=== PATIENT | male | born 1950 | race Caucasian/White ===

== ENCOUNTER 2022-10-18 05:59 | Emergency (ER) | payer MEDICARE, OTHER ==
[2022-10-18] MEDS ORDERED: SODIUM CHLORIDE 0.9% 1,000 ML IV STA (06:10)
[2022-10-18 06:15] VITALS: TEMP 98
[2022-10-18 06:27] LABS: Basophils % (A) 0 %; Eosinophils # (A) 0.2 k/uL (0-0.7); Eosinophils % (A) 1 %; HCT 38.1 % (39.0-53.0); Lymphocytes # (A) 1.3 k/uL (1.0-4.8); Lymphocytes % (A) 8 %; MCH 32.8 pg (25.0-35.0); MCV 96.3 fL (80.0-100.0); Mean Platelet Volume 10.6; Monocytes # (A) 1.1 k/uL (0-1.0); Monocytes % (A) 7 %; Neutrophils # (A) 12.4 k/uL (1.3-7.7); Neutrophils % (A) 82 %; Platelet Count 161 k/uL (150-450); RBC 3.96 m/uL (4.30-5.90); RDW 13.3 % (11.5-15.5); WBC 15.2 k/uL (3.8-10.6)
--- NOTE | 2022-10-18 06:41 | ED ---
Fall HPI <Efrain Chavis - Last Filed: 10/18/22 07:21> - General Source: patient, EMS, RN notes reviewed Mode of arrival: EMS - History of Present Illness MD Complaint: fall <Faby Pritchard - Last Filed: 10/18/22 17:46> - General Chief Complaint: Fall Stated Complaint: Fall N/V/D Time Seen by Provider: 10/18/22 06:05 - History of Present Illness Initial Comments: This is a 72-year-old male who presents to the emergency department for a fall. Patient states that he tripped and fell 3-4 days ago, and has been on the ground since. Unsure if he had any loss of consciousness. He did hit his head. He was unable to get himself back up. States that he did urinate and defecate on himself multiple times. Patient also smells very strongly of urine. Patient reports that while he was on the ground, he was on the phone with his nephew multiple times and his nephew finally convinced him to call EMS. Patient is rambling and not making sense during some aspects of conversation. He does state though that he was hesitant to come in sooner, because of his fear of hospitals. When his nephew arrived, he said that when he had been on the phone with him, he was initially not being truthful and saying that he was just resting on the couch, when in fact he was on the floor the whole time. He did experience episodes of confusion during some of these conversations, which has never happened before. He had also been complaining of intermittent episodes of nausea and vomiting while laying on the floor. He confirms that the patient has no past medical history and takes no medication. (Faby Pritchard) - Related Data Home Medications Medication Instructions Recorded Confirmed No Known Home Medications 10/18/22 10/18/22 Allergies Allergy/AdvReac Type Severity Reaction Status Date / Time Penicillins Allergy Unknown Unknown Verified 10/18/22 09:00 Review of Systems ROS Other: All systems not noted in ROS Statement are negative. <Efrain Chavis - Last Filed: 10/18/22 07:21> ROS Other: All systems not noted in ROS Statement are negative. <Faby Pritchard - Last Filed: 10/18/22 17:46> ROS Statement: Those systems with pertinent positive or pertinent negative responses have been documented in the HPI. General Exam Limitations: no limitations General appearance: alert, in no apparent distress Head exam: Present: atraumatic, normocephalic, normal inspection Eye exam: Present: normal appearance, PERRL, EOMI. Absent: scleral icterus, conjunctival injection, periorbital swelling Respiratory exam: Present: normal lung sounds bilaterally. Absent: respiratory distress, wheezes, rales, rhonchi, stridor Cardiovascular Exam: Present: regular rate, normal rhythm, normal heart sounds. Absent: systolic murmur, diastolic murmur, rubs, gallop, clicks Neurological exam: Present: alert, oriented X3, CN II-XII intact Expanded Speech: Present: fluid speech Cerebellar function: Finger to Nose: Normal, Romberg: Normal Motor strength exam: RUE: 5, LUE: 5, RLE: 5, LLE: 5 Eye Response: (4) open spontaneously Motor Response: (6) obeys commands Verbal Response: (5) oriented Psychiatric exam: Present: normal affect, normal mood Skin exam: Present: warm, dry, intact, normal color. Absent: rash <Faby Pritchard - Last Filed: 10/18/22 17:46> Course Vital Signs 10/18/22 10/18/22 10/18/22 06:02 07:25 07:36 Temperature 98 F Pulse Rate 80 78 83 Respiratory 20 18 20 Rate Blood Pressure 166/85 203/106 203/100 O2 Sat by Pulse 99 99 98 Oximetry 10/18/22 10/18/22 10/18/22 07:56 07:57 08:00 Temperature Pulse Rate 78 103 H Respiratory 32 H 18 8 L Rate Blood Pressure 168/118 168/118 O2 Sat by Pulse 99 98 99 Oximetry 10/18/22 10/18/22 10/18/22 08:04 08:15 08:18 Temperature Pulse Rate 110 H 101 H 101 H Respiratory 18 26 H 18 Rate Blood Pressure 191/90 163/74 161/82 O2 Sat by Pulse 99 49 L 99 Oximetry 10/18/22 10/18/22 10/18/22 08:20 08:25 08:30 Temperature Pulse Rate 102 H 101 H 100 Respiratory 18 18 16 Rate Blood Pressure 161/82 164/82 136/109 O2 Sat by Pulse 92 L 93 L Oximetry 10/18/22 10/18/22 08:40 10:25 Temperature Pulse Rate 109 H 104 H Respiratory 20 18 Rate Blood Pressure 157/78 112/71 O2 Sat by Pulse 95 99 Oximetry Medical Decision Making - Lab Data Result diagrams: 10/18/22 06:12 <Efrain Chavis - Last Filed: 10/18/22 07:21> - Lab Data Result diagrams: 10/18/22 06:12 10/18/22 08:47 - Radiology Data Radiology results: report reviewed, image reviewed <Faby Pritchard - Last Filed: 10/18/22 17:46> - Medical Decision Making This is a 72-year-old male who presents to the emergency department for a fall and altered mental status. Was pt. sent in by a medical professional or institution? @ -No Did you speak to anyone other than the patient for history? @ -Yes, I spoke with his nephew, who provided all of the information discussed during their phone calls with the patient as listed in the HPI, as well as the fact that the patient has no medical history and takes no medication. Did you review nursing and triage notes? @ -Yes, and I agree, it is accurate with regards to the patient's symptoms. Were old charts reviewed? @ -No Differential Diagnosis? @ -Differential Altered Mental Status: Hypoglycemia, DKA, hypercapnia, ETOH, overdose, CO poisoning, trauma, myxedema coma, HTN encephalopathy, infection, encephalitis, psychosis, intercranial hemorrhage, hepatic encephalopathy, meningitis, CVA, this is not meant to be an all-inclusive list EKG interpreted by me (3pts min.)? @ -EKG interpreted by me demonstrating the following: Sinus rhythm. Ventricular rate 91 beats per minute, ND interval 148 ms, QRS duration 88 ms, QTC 414 ms. X-rays interpreted by me (1pt min.)? @ -Chest x-ray obtained, my interpretation identifies no localized consolidations or infiltrates. CT interpreted by me (1pt min.)? @ -Computed tomography scan of the brain obtained. My interpretation identifies an acute left cerebellar hemorrhage. U/S interpreted by me (1pt. min.)? @ -Not obtained What testing was considered but not performed? (CT, X-rays, U/S, labs)? Why? @ -None What meds were considered but not given? Why? @ -None Did you discuss the management of the patient with other professionals? @ -Yes, Zulma, BETTY with Dr. Hdez, neurointerventionalist. She spoke with Dr. Hdez, who advised transfer to [facility]. Decision was confirmed by him at 9:16am. Pt accepted as ED to ED transfer at [facility]. Dr. Asif, ED attending, is the accepting provider. Did you reconcile home meds? @ -No Was smoking cessation discussed for >3mins.? @ -No Was critical care preformed (if so, how long)? @ -No Were there social determinants of health that impacted care today? How? (Homelessness, low income, unemployed, alcoholism, drug addiction, transportation, low edu. Level, literacy, decrease access to med. care, retirement, rehab)? @ -No Was there de-escalation of care discussed even if they declined? (Discuss DNR or withdrawal of care, Hospice)? @ -No What co-morbidities impacted this encounter? (DM, HTN, Smoking, COPD, CAD, Canc er, CVA, Hep., AIDS, mental health diagnosis, sleep apnea, morbid obesity)? @ -None Was patient admitted / discharged? @ -Transferred to [facility]. Given that the patient was making bizarre statements on arrival and appeared to be acting altered, computed tomography scan of the brain was subsequently obtained. Computed tomography scan of the brain obtained revealing an intraparenchymal cyst left cerebellar hemorrhage measuring 2.5 x 2.6cm with mild mass effect upon the forth ventricle and mild surrounding edema. We then obtained a CTA of the head and neck, however this did not identify any additional irregularities. Chest x-ray obtained as well revealing no acute process. HOB kept at 30 degrees. Patient was hypertensive at 203/100 and subsequently started on a Cardene drip. I spoke with BETTY Maya with Dr. Hdez, neurointerventionalist. She advised keeping his BP in the 130-150 range systolically. After speaking with Dr. Hdez, he advised transfer to [facility]. Patient transferred to [facility] ED. Stroke team does not need to be activated when the patient arrives. Lab work reveals leukocytosis. The other blood work hemolyzed and did not result prior to transfer. However, I suspect that the patient is in rhabdomyolysis due to prolonged downtime. Undiagnosed new problem with uncertain prognosis? @ -None Drug Therapy requiring intensive monitoring for toxicity (Heparin, Nitro, Insulin, Cardizem)? @ -None Were any procedures done? @ -None Diagnosis/symptom? @ -Acute cerebellar hemorrhage, Fall Acute, or Chronic, or Acute on Chronic? @ -Acute Uncomplicated (without systemic symptoms) or Complicated (systemic symptoms)? @ -Complicated Side effects of treatment? @ -None Exacerbation, Progression, or Severe Exacerbation] @ -Not applicable Poses a threat to life or bodily function? @ -Yes This case was discussed in detail with the attending ED physician, Dr. Cobb. Presentation, findings, and treatment plan discussed in detail as well. (Faby Pritchard) - Lab Data Lab Results 10/18/22 10/18/22 10/18/22 Range/Units 06:12 08:47 08:47 WBC 15.2 H (3.8-10.6) k/uL RBC 3.96 L (4.30-5.90) m/uL Hgb 13.0 (13.0-17.5) gm/dL Hct 38.1 L (39.0-53.0) % MCV 96.3 (80.0-100.0) fL MCH 32.8 (25.0-35.0) pg MCHC 34.0 (31.0-37.0) g/dL RDW 13.3 (11.5-15.5) % Plt Count 161 (150-450) k/uL MPV 10.6 Neutrophils % 82 % Lymphocytes % 8 % Monocytes % 7 % Eosinophils % 1 % Basophils % 0 % Neutrophils # 12.4 H (1.3-7.7) k/uL Lymphocytes # 1.3 (1.0-4.8) k/uL Monocytes # 1.1 H (0-1.0) k/uL Eosinophils # 0.2 (0-0.7) k/uL Basophils # 0.0 (0-0.2) k/uL Sodium 143 (137-145) mmol/L Potassium 3.6 (3.5-5.1) mmol/L Chloride 109 H (98-107) mmol/L Carbon Dioxide 24 (22-30) mmol/L Anion Gap 10 mmol/L BUN 45 H (9-20) mg/dL Creatinine 3.02 H (0.66-1.25) mg/dL Est GFR (CKD-EPI)AfAm 23 (>60 ml/min/1.73 sqM) Est GFR (CKD-EPI)NonAf 20 (>60 ml/min/1.73 sqM) Glucose 95 (74-99) mg/dL Lactic Ac Sepsis Rflx Plasma Lactic Acid Hill (0.7-2.0) mmol/L Calcium 8.2 L (8.4-10.2) mg/dL Total Bilirubin 0.7 (0.2-1.3) mg/dL AST 79 H (17-59) U/L ALT 46 (4-49) U/L Alkaline Phosphatase 49 (38-126) U/L Creatine Kinase 2019 H* (55-170) U/L Total Protein 6.1 L (6.3-8.2) g/dL Albumin 3.3 L (3.5-5.0) g/dL Urine Color Light Red Urine Appearance Cloudy (Clear) Urine pH 7.5 (5.0-8.0) Ur Specific [place] 1.012 (1.001-1.035) Urine Protein 1+ H (Negative) Urine Glucose (UA) Negative (Negative) Urine Ketones Negative (Negative) Urine Blood Large H (Negative) Urine Nitrite Negative (Negative) Urine Bilirubin Negative (Negative) Urine Urobilinogen <2.0 (<2.0) mg/dL Ur Leukocyte Esterase Moderate H (Negative) Urine RBC >182 H (0-5) /hpf Urine WBC 25 H (0-5) /hpf Ur Squamous Epith Cells 4 (0-4) /hpf Urine Bacteria Rare H (None) /hpf 10/18/22 10/18/22 Range/Units 08:47 09:52 WBC (3.8-10.6) k/uL RBC (4.30-5.90) m/uL Hgb (13.0-17.5) gm/dL Hct (39.0-53.0) % MCV (80.0-100.0) fL MCH (25.0-35.0) pg MCHC (31.0-37.0) g/dL RDW (11.5-15.5) % Plt Count (150-450) k/uL MPV Neutrophils % % Lymphocytes % % Monocytes % % Eosinophils % % Basophils % % Neutrophils # (1.3-7.7) k/uL Lymphocytes # (1.0-4.8) k/uL Monocytes # (0-1.0) k/uL Eosinophils # (0-0.7) k/uL Basophils # (0-0.2) k/uL Sodium (137-145) mmol/L Potassium (3.5-5.1) mmol/L Chloride (98-107) mmol/L Carbon Dioxide (22-30) mmol/L Anion Gap mmol/L BUN (9-20) mg/dL Creatinine (0.66-1.25) mg/dL Est GFR (CKD-EPI)AfAm (>60 ml/min/1.73 sqM) Est GFR (CKD-EPI)NonAf (>60 ml/min/1.73 sqM) Glucose (74-99) mg/dL Lactic Ac Sepsis Rflx Y Plasma Lactic Acid Hill 2.7 H* (0.7-2.0) mmol/L Calcium (8.4-10.2) mg/dL Total Bilirubin (0.2-1.3) mg/dL AST (17-59) U/L ALT (4-49) U/L Alkaline Phosphatase (38-126) U/L Creatine Kinase (55-170) U/L Total Protein (6.3-8.2) g/dL Albumin (3.5-5.0) g/dL Urine Color Urine Appearance (Clear) Urine pH (5.0-8.0) Ur Specific [place] (1.001-1.035) Urine Protein (Negative) Urine Glucose (UA) (Negative) Urine Ketones (Negative) Urine Blood (Negative) Urine Nitrite (Negative) Urine Bilirubin (Negative) Urine Urobilinogen (<2.0) mg/dL Ur Leukocyte Esterase (Negative) Urine RBC (0-5) /hpf Urine WBC (0-5) /hpf Ur Squamous Epith Cells (0-4) /hpf Urine Bacteria (None) /hpf Disposition <Efrain Chavis - Last Filed: 10/18/22 07:21> - Out of Hospital Transfer - Req. Specs Out of Hospital Transfer - Requested Specifics: Other Emergency Center ([facility]) <Faby Pritchard - Last Filed: 10/18/22 17:46> Clinical Impression: Fall, Cerebellar hemorrhage, acute Disposition: OTHER INSTITUTION NOT DEFINED Referrals: None,Stated [REFERRING] - 1-2 days
--- NOTE | 2022-10-18 07:14 | CT ---
EXAMINATION TYPE: CT brain alexandre wo con DATE OF EXAM: 10/18/2022 COMPARISON: None HISTORY: Fall CT DLP: 1410.[address] of the brain was performed. The ventricles, basal cisterns and sulci overlying the cerebral convexities demonstrate mild enlargem ent. Intraparenchymal cyst left cerebellar hemorrhage is noted measuring 2.5 x 2.6 cm. There is mild mass effect upon the fourth ventricle and mild surrounding edema. There is decreased attenuation about the periventricular white matter and deep white matter of both c erebral hemispheres, compatible with chronic small vessel ischemia. No mass effects are seen. If symptoms persist consider MRI. Osseous calvarium is intact. IMPRESSION: 1. Acute hemorrhage within the left cerebellum is noted. 2. Age-related atrophic and chronic small vessel ischemic change. CT Cervical Spine: Unenhanced CT of the cervical spine was performed with bone and soft tissue window settings submitted . Coronal and sagittal reconstruction is obtained. There is normal alignment and prevertebral soft tissues. No evidence for acute cervical fracture . Scattered degenerative disc disease and spondylosis. Biapical scarring. IMPRESSION: 1. No evidence for acute fracture or subluxation of the cervical spine.
--- NOTE | 2022-10-18 07:22 | XR ---
EXAMINATION TYPE: XR chest 2V DATE OF EXAM: 10/18/2022 COMPARISON: NONE HISTORY: Shortness of breath TECHNIQUE: Frontal and lateral views of the chest are obtained. FINDINGS: Scattered senescent parenchymal changes noted. Hyperinflation compatible with COPD. No evidence for infiltrate. No evidence for atelectasis. Heart size is stable. Mediastinal structures are stable and grossly unremarkable. No evidence for hilar prominence. Degenerative changes dorsal spine. IMPRESSION: 1. No evidence for acute pulmonary disease.
[2022-10-18] MEDS ORDERED: ONDANSETRON 4 MG/2 ML VIAL IVP STA (07:57)
[2022-10-18] MEDS ORDERED: niCARdipine 20 MG in SODIUM CHLORIDE 0.9% 192 ML IV SCH (08:00)
--- NOTE | 2022-10-18 08:21 | CT ---
EXAMINATION TYPE: CT angio head neck CT DLP: 459.3 mGycm, Automated exposure control for dose reduction was used. DATE OF EXAM: 10/18/2022 8:08 AM COMPARISON: CT brain C-spine 10/18/2022. CLINICAL INDICATION:Male, 72 years old with history of Cerebellar bleed, AMS; PHH, Cerebellar bleed, AMS TECHNIQUE: Axially acquired helical CT angiogram of the head and neck was obtained with contrast util izing 65 cc of Isovue-370 administered intravenously. Axial images are supplemented with 3D reconstru ctions which were post-processed at an independent workstation. NASCET criteria used. FINDINGS: Redemonstration of left cerebellar hemorrhage. No obvious active extravasation.. CTA HEAD: The visualized portions of the internal carotid arteries, middle cerebral arteries, anterior cerebral arteries, and posterior cerebral arteries are patent. The basilar and vertebral arteries are patent. CTA NECK: Right Carotid System: The common carotid artery and external carotid artery are patent. There is minimal atherosclerotic pl aque at the carotid bifurcation. Less than 50% stenosis identified. The remaining portions of the int ernal carotid artery demonstrate normal size without significant narrowing. Left Carotid System: The common carotid artery and external carotid artery are patent. The carotid bifurcation demonstrate s no evidence of hemodynamically significant stenosis. The remaining portions of the internal carotid artery demonstrate normal size without significant narrowing. Vertebral arteries are patent without evidence hemodynamically significant stenosis. There is a three-vessel aortic arch. The origins of the great vessels are patent. No evidence of hemo dynamically significant stenosis. Centrilobular emphysematous changes. Degenerative changes of the cervical spine. IMPRESSION: 1. No evidence of dissection of the cervical internal carotid arteries or vertebral arteries. Less th an 50% stenosis at the right carotid bifurcation. No significant stenosis at the left carotid bifurca tion. 2. No evidence of high-grade stenosis or intracranial aneurysm. 3. Redemonstration of left cerebellar hemorrhage from earlier CT. No obvious intracranial aneurysm in this location.
[2022-10-18 09:34] LABS: Appearance,Urine Cloudy (Clear); Bacteria,Urine Rare /hpf; Bilirubin,Urine Negative (Negative); Blood,Urine Large (Negative); Color,Urine Light Red; Glucose,Urine (UA) Negative (Negative); Ketones,Urine Negative (Negative); Leukocyte Esterase,Urine Moderate (Negative); Nitrite,Urine Negative (Negative); PH, Urine 7.5 (5.0-8.0); Protein,Urine 1+ (Negative); RBC,Urine >182 /hpf (0-5); Specific Gravity,Urine 1.012 (1.001-1.035); Squamous Epithelial Cell,Urine 4 /hpf (0-4); Urobilinogen,Urine <2.0 mg/dL (<2.0); WBC,Urine 25 /hpf (0-5)
[2022-10-18 09:35] LABS: ALT 46 U/L (4-49); AST 79 U/L (17-59); African American GFR (CKD) 23 (>60 ml/min/1.73 sqM); Albumin 3.3 g/dL (3.5-5.0); Alkaline Phosphatase 49 U/L (38-126); Anion Gap 10 mmol/L; Blood Urea Nitrogen 45 mg/dL (9-20); Calcium 8.2 mg/dL (8.4-10.2); Carbon Dioxide 24 mmol/L (22-30); Chloride 109 mmol/L (98-107); Glucose 95 mg/dL (74-99); Non-African American GFR(CKD) 20 (>60 ml/min/1.73 sqM); Potassium 3.6 mmol/L (3.5-5.1); Sodium 143 mmol/L (137-145); Total Bilirubin 0.7 mg/dL (0.2-1.3); Total Protein 6.1 g/dL (6.3-8.2)
[2022-10-18 10:14] LABS: Creatine Kinase 2019 U/L (55-170)
[2022-10-18 10:29] VITALS: BP 112/71; PULSE 104; RESP 18
== END 2022-10-18 10:34 | disposition other institution (70) ==
LOC: EC 05:59
DX: S06.360A Traumatic hemorrhage of cerebrum, unspecified, without loss of consciousness, initial encounter (principal); Z88.0 Allergy status to penicillin; W01.0XXA Fall on same level from slipping, tripping and stumbling without subsequent striking against object, initial encounter
CPT/HCPCS: 36415; 93005; 80053; 82550; 83605; 85025; 81001; 71046; 72125; 70496; 70450; 70498; 99285; 96365; 96366 ×2; 96375; 96361; J2405; Q9967

== ENCOUNTER 2022-11-19 14:03 | Emergency (ER) | payer MEDICARE, OTHER ==
[2022-11-19 14:24] VITALS: PULSE 59; RESP 16; TEMP 97.6
[2022-11-19] MEDS ORDERED: SODIUM CHLORIDE 0.9% 1,000 ML IV STA (14:33)
[2022-11-19 15:09] LABS: Basophils % (A) 0 %; Eosinophils # (A) 0.2 k/uL (0-0.7); Eosinophils % (A) 2 %; HGB 11.7 gm/dL (13.0-17.5); Lymphocytes # (A) 1.1 k/uL (1.0-4.8); Lymphocytes % (A) 12 %; MCH 32.7 pg (25.0-35.0); MCHC 33.5 g/dL (31.0-37.0); MCV 97.6 fL (80.0-100.0); Monocytes # (A) 0.8 k/uL (0-1.0); Monocytes % (A) 8 %; Neutrophils # (A) 7.5 k/uL (1.3-7.7); Neutrophils % (A) 76 %; RBC 3.58 m/uL (4.30-5.90); WBC 9.8 k/uL (3.8-10.6)
[2022-11-19 15:15] LABS: Platelet Count 401 k/uL (150-450)
[2022-11-19 15:16] LABS: Appearance,Urine Cloudy (Clear); Bacteria,Urine Rare /hpf; Bilirubin,Urine Negative (Negative); Blood,Urine Small (Negative); Color,Urine Yellow; Glucose,Urine (UA) Negative (Negative); Hyaline Casts,Urine 4 /lpf (0-2); INR 1.2 (<1.2); Ketones,Urine Negative (Negative); Leukocyte Esterase,Urine Large (Negative); Mucus,Urine Rare /hpf; Nitrite,Urine Negative (Negative); Partial Thromboplastin Time 23.7 sec (22.0-30.0); Protein,Urine 1+ (Negative); Prothrombin Time 12.4 sec (9.0-12.0); RBC,Urine 9 /hpf (0-5); Squamous Epithelial Cell,Urine <1 /hpf (0-4); Urobilinogen,Urine <2.0 mg/dL (<2.0); WBC,Urine 120 /hpf (0-5)
[2022-11-19 15:17] LABS: ALT 44 U/L (4-49); AST 45 U/L (17-59); African American GFR (CKD) 76 (>60 ml/min/1.73 sqM); Albumin 3.2 g/dL (3.5-5.0); Alkaline Phosphatase 54 U/L (38-126); Anion Gap 9 mmol/L; Blood Urea Nitrogen 20 mg/dL (9-20); Calcium 8.7 mg/dL (8.4-10.2); Carbon Dioxide 26 mmol/L (22-30); Chloride 100 mmol/L (98-107); Glucose 135 mg/dL (74-99); Magnesium 1.8 mg/dL (1.6-2.3); Non-African American GFR(CKD) 66 (>60 ml/min/1.73 sqM); Potassium 3.4 mmol/L (3.5-5.1); Sodium 135 mmol/L (137-145); Total Bilirubin 0.6 mg/dL (0.2-1.3); Total Protein 6.6 g/dL (6.3-8.2)
--- NOTE | 2022-11-19 15:33 | XR ---
EXAMINATION TYPE: XR chest 2V DATE OF EXAM: 11/19/2022 COMPARISON: 10/18/2022 HISTORY: 72-year-old male with syncope TECHNIQUE: AP and lateral views FINDINGS: Heart normal size. Aorta and pulmonary vasculature within normal limits. Hyperinflation. No consolida tion or pleural effusion. IMPRESSION: Hyperinflation may relate to depth of inspiration or underlying emphysema. No acute process seen.
[2022-11-19 15:58] VITALS: BP 102/64
--- NOTE | 2022-11-19 16:23 | CT ---
EXAMINATION TYPE: CT brain wo con DATE OF EXAM: 11/19/2022 COMPARISON: 10/18/2022 HISTORY: 72-year-old male Syncope. Recent ICH last month. No acute fall. TECHNIQUE: Examination was done in axial plane without intravenous contrast. Coronal and sagittal r econstructions performed. CT DLP: 1144.4 mGycm Automated exposure control for dose reduction was used. FINDINGS: There is no evidence of acute intracranial hemorrhage, acute ischemic changes, mass, mass-effect, or extra-axial fluid collection. There is no effacement of cerebral sulci or basal subarachnoid cister ns. There is no hydrocephalus. There is no midline shift. Ashley-white matter distinction is preserv ed. The previous hemorrhage within the left cerebellar hemisphere shows interval involution. There is les s mass effect and hypodensity now present in the. Background moderate to severe white matter hypodensities throughout the bilateral cerebral hemisphere s and mild volume loss along the bilateral cerebral convexities. Mastoid air cells well pneumatized. Orbits and globes are intact. 7 mm polyp or mucosal retention cys t floor of the left maxillary sinus. IMPRESSION: 1. Interval resolution of the previous intraparenchymal hematoma within the left cerebellar hemispher e. Only focal hypodensity remains here now, possible developing encephalomalacia. The mass effect is also improved with only minimal residual impression onto the left roof of the fourth ventricle. 2. No acute intracranial abnormality seen.
--- NOTE | 2022-11-19 16:34 | ED ---
General Adult HPI - General Chief complaint: Syncope Stated complaint: Syncope Time Seen by Provider: 11/19/22 14:06 Source: patient, EMS, RN notes reviewed, old records reviewed Mode of arrival: EMS Limitations: no limitations - History of Present Illness Initial comments: Patient is a 72-year-old male with past medical history remarkable for intracran ial bleed, a Keating catheter placement due to prostate issues presents emergency Department following a single episode at home. Appears to have been an orthostatic hypotensive episode. He stated with assistance and then had a near immediate syncopal episode afterwards. He has had less of the appetite since returning home from rehab. Has residual left-sided weakness from the prior intracranial injury. He denies any other acute complaints at this time. Denies chest pain or shortness breath. Denies abdominal pain, nausea, vomiting. Has recent discharge from rehab facility a few days ago where he went after his bleed. Presents for further evaluation at this time. Denies hitting his head. Is not on blood thinners. No recent falls otherwise. - Related Data Previous Rx's Medication Instructions Recorded Sulfamethoxazole/Trimethoprim 1 each PO BID 14 Days #1 tab 11/19/22 [Bactrim Ds Tablet] Allergies Allergy/AdvReac Type Severity Reaction Status Date / Time Penicillins Allergy Unknown Unknown Verified 10/18/22 09:00 Review of Systems ROS Statement: Those systems with pertinent positive or pertinent negative responses have been documented in the HPI. Review of Systems: CONST: Denies fever EYES: Denies blurry vision ENT: Denies nasal congestion C/V: Denies Chest pain RESP: Denies shortness of breath GI: Denies abdominal pain : Denies dysuria SKIN: Denies rash. MSK: Denies joint pain. NEURO: Denies headache ROS Other: All systems not noted in ROS Statement are negative. Past Medical History Additional Past Medical History / Comment(s): Brain Aneurysm (2022) History of Any Multi-Drug Resistant Organisms: None Reported Past Surgical History: No Surgical Hx Reported Past Psychological History: No Psychological Hx Reported Past Alcohol Use History: None Reported Past Drug Use History: None Reported General Exam - General Exam Comments Initial Comments: General: Appears in no acute distress. HEAD: Normal with no signs of head trauma. EYES: PERRLA, EOMI, conjunctiva normal, no discharge. Pupils 3 mm and equal bilaterally. ENT: Hearing grossly intact, normal oropharynx. RESPIRATORY: Clear breath sounds bilaterally. No wheezes, rales, or rhonchi. C/V: Regular rate and rhythm. S1 and S2 auscultated, no edema, peripheral pulses 2+ and intact throughout ABD: Abd is soft, nontender, nondistended. Patient is a chronic indwelling Keating catheter. EXT: Normal range of motion, no obvious deformity SKIN: No rashes or lesions observed on exposed skin. NEURO: Alert and oriented x 4. Cranial nerves II-XII intact. Chronic left upper extremity and left lower extremity mild weakness. He is ambulating with walker and wheelchair at home. GCS of 15. NIH of 0. Limitations: no limitations Course Vital Signs 11/19/22 11/19/22 11/19/22 14:09 15:45 15:50 Temperature 97.6 F Pulse Rate 59 L Respiratory 16 Rate Blood Pressure 130/71 Blood Pressure 122/66 [Sitting] Blood Pressure [Standing] Blood Pressure 114/70 [Supine] O2 Sat by Pulse 97 Oximetry 11/19/22 15:55 Temperature Pulse Rate Respiratory Rate Blood Pressure Blood Pressure [Sitting] Blood Pressure 102/64 [Standing] Blood Pressure [Supine] O2 Sat by Pulse Oximetry Medical Decision Making - Medical Decision Making Was pt. sent in by a medical professional or institution (, PA, [employer], urgent care, hospital, or [facility]...) When possible be specific @ -No Did you speak to anyone other than the patient for history (EMS, parent, family, police, friend...)? What history was obtained from this source @ -Spoke with family who is at bedside and caught the patient when he had a syncopal episode. Did you review nursing and triage notes (agree or disagree)? Why? @ -I reviewed and agree with nursing and triage notes Were old charts reviewed (outside hosp., previous admission, EMS record, old EKG, old radiological studies, urgent care reports/EKG's, [facility] records)? Report findings @ -No old charts were reviewed Differential Diagnosis (chest pain, altered mental status, abdominal pain women, abdominal pain men, vaginal bleeding, weakness, fever, dyspnea, syncope, headache, dizziness, GI bleed, back pain, seizure, CVA, palpatations, mental health, musculoskeletal)? @ -Differential Syncope: Valvular disease, hypertrophic cardiomyopathy, pulmonary embolism, tamponade, tachycardia, bradycardia, VA, hypovolemia, hemorrhage, dissection, anemia, intracranial hemorrhage, seizure, hypoglycemia, carbon monoxide poisoning, this is not meant to be an all-inclusive list. EKG interpreted by me (3pts min.). @ -As above X-rays interpreted by me (1pt min.). @ -Chest x-ray reveals no obvious acute cardio pulmonary process. CT interpreted by me (1pt min.). @ -CT brain reveals resolution of the prior intraparenchymal hematoma. Radiology notes developing encephalomalacia. Improved mass effect as well. U/S interpreted by me (1pt. min.). @ -None done What testing was considered but not performed or refused? (CT, X-rays, U/S, labs)? Why? @ -None What meds were considered but not given or refused? Why? @ -None Did you discuss the management of the patient with other professionals (maira whipple i.e. , PA, [employer], lab, RT, psych nurse, social media intern, financial aid officer, teacher, commissioned police officer, case supervisor)? Give summary @ -No Was smoking cessation discussed for >3mins.? @ -No Was critical care preformed (if so, how long)? @ -No Were there social determinants of health that impacted care today? How? (Homelessness, low income, unemployed, alcoholism, drug addiction, transportation, low edu. Level, literacy, decrease access to med. care, long-term, rehab)? @ -No Was there de-escalation of care discussed even if they declined (Discuss DNR or withdrawal of care, Hospice)? DNR status @ -No What co-morbidities impacted this encounter? (DM, HTN, Smoking, COPD, CAD, Cancer, CVA, ARF, Chemo, Hep., AIDS, mental health diagnosis, sleep apnea, morbid obesity)? @ -None Was patient admitted / discharged? Hospital course, mention meds given and route, prescriptions, significant lab abnormalities, going to OR and other pertinent info. @ -Based on the patient's presentation and physical exam, presents with syncope likely orthostatic hypotension. I discussed this with the patient. He'll be given IV fluids. We'll obtain basic labs, as well as CT brain due to his recent intracranial bleed. He was in agreement this plan. Vital signs currently are within acceptable limits. Labs remarkable for undetectable troponin. Urinalysis concerning for UTI. Suspicion a situation but chronic indwelling Keating catheter. Brain CT reveals no acute findings and resolution of the previous intracranial hemorrhage with developing encephalomalacia. Chest x-ray shows no obvious acute cardio pulmonary process. Orthostatic vital signs were obtained and were very borderline and close to being positive. Patient states he did not feel lightheaded when he stood up. He feels improved and would like to go home. I believe this is reasonable with strict return precautions and we discussed fluid hydration. We discussed his workup. We will switch out his Keating catheter and he will be started on antibiotics. He was in agreement this plan. Patient has close follow-up within the next week. I will provide the patient with a prescription for Bactrim. I instructed the patient to follow up with their PCP in the next 1-3 days . I explained that the patient should return to the emergency department if they experience any worsening symptoms. Strict return precautions were discussed with the patient. The patient expressed understanding of these instructions. I answered all questions that the patient had. The patient was discharged home in good condition with their prescriptions and follow up information. Undiagnosed new problem with uncertain prognosis? @ -No Drug Therapy requiring intensive monitoring for toxicity (Heparin, Nitro, Insulin, Cardizem)? @ -No Were any procedures done? @ -No Diagnosis/symptom? @ -Syncope, dehydration, UTI Acute, or Chronic, or Acute on Chronic? @ -Acute Uncomplicated (without systemic symptoms) or Complicated (systemic symptoms)? @ -Complicated Side effects of treatment? @ -No Exacerbation, Progression, or Severe Exacerbation? @ -No Poses a threat to life or bodily function? How? (Chest pain, USA, VA, pneumonia, PE, COPD, DKA, ARF, appy, cholecystitis, CVA, Diverticulitis, Homicidal, Suicidal, threat to staff... and all critical care pts) @ -No - Lab Data Result diagrams: 11/19/22 14:48 11/19/22 14:48 Lab Results 11/19/22 11/19/22 11/19/22 Range/Units 14:48 14:48 14:48 WBC 9.8 (3.8-10.6) k/uL RBC 3.58 L (4.30-5.90) m/uL Hgb 11.7 L (13.0-17.5) gm/dL Hct 35.0 L (39.0-53.0) % MCV 97.6 (80.0-100.0) fL MCH 32.7 (25.0-35.0) pg MCHC 33.5 (31.0-37.0) g/dL RDW 13.0 (11.5-15.5) % Plt Count 401 D (150-450) k/uL MPV 8.0 Neutrophils % 76 % Lymphocytes % 12 % Monocytes % 8 % Eosinophils % 2 % Basophils % 0 % Neutrophils # 7.5 (1.3-7.7) k/uL Lymphocytes # 1.1 (1.0-4.8) k/uL Monocytes # 0.8 (0-1.0) k/uL Eosinophils # 0.2 (0-0.7) k/uL Basophils # 0.0 (0-0.2) k/uL PT 12.4 H (9.0-12.0) sec INR 1.2 H (<1.2) APTT 23.7 (22.0-30.0) sec Sodium 135 L (137-145) mmol/L Potassium 3.4 L (3.5-5.1) mmol/L Chloride 100 (98-107) mmol/L Carbon Dioxide 26 (22-30) mmol/L Anion Gap 9 mmol/L BUN 20 (9-20) mg/dL Creatinine 1.11 (0.66-1.25) mg/dL Est GFR (CKD-EPI)AfAm 76 (>60 ml/min/1.73 sqM) Est GFR (CKD-EPI)NonAf 66 (>60 ml/min/1.73 sqM) Glucose 135 H (74-99) mg/dL Calcium 8.7 (8.4-10.2) mg/dL Magnesium 1.8 (1.6-2.3) mg/dL Total Bilirubin 0.6 (0.2-1.3) mg/dL AST 45 (17-59) U/L ALT 44 (4-49) U/L Alkaline Phosphatase 54 (38-126) U/L Troponin I (0.000-0.034) ng/mL Total Protein 6.6 (6.3-8.2) g/dL Albumin 3.2 L (3.5-5.0) g/dL Urine Color Urine Appearance (Clear) Urine pH (5.0-8.0) Ur Specific Fountain (1.001-1.035) Urine Protein (Negative) Urine Glucose (UA) (Negative) Urine Ketones (Negative) Urine Blood (Negative) Urine Nitrite (Negative) Urine Bilirubin (Negative) Urine Urobilinogen (<2.0) mg/dL Ur Leukocyte Esterase (Negative) Urine RBC (0-5) /hpf Urine WBC (0-5) /hpf Urine WBC Clumps (None) /hpf Ur Squamous Epith Cells (0-4) /hpf Urine Bacteria (None) /hpf Hyaline Casts (0-2) /lpf Urine Mucus (None) /hpf Influenza Type A (PCR) (Not Detectd) Influenza Type B (PCR) (Not Detectd) RSV (PCR) (Not Detectd) SARS-CoV-2 (PCR) (Not Detectd) 11/19/22 11/19/22 11/19/22 Range/Units 14:48 14:48 14:48 WBC (3.8-10.6) k/uL RBC (4.30-5.90) m/uL Hgb (13.0-17.5) gm/dL Hct (39.0-53.0) % MCV (80.0-100.0) fL MCH (25.0-35.0) pg MCHC (31.0-37.0) g/dL RDW (11.5-15.5) % Plt Count (150-450) k/uL MPV Neutrophils % % Lymphocytes % % Monocytes % % Eosinophils % % Basophils % % Neutrophils # (1.3-7.7) k/uL Lymphocytes # (1.0-4.8) k/uL Monocytes # (0-1.0) k/uL Eosinophils # (0-0.7) k/uL Basophils # (0-0.2) k/uL PT (9.0-12.0) sec INR (<1.2) APTT (22.0-30.0) sec Sodium (137-145) mmol/L Potassium (3.5-5.1) mmol/L Chloride (98-107) mmol/L Carbon Dioxide (22-30) mmol/L Anion Gap mmol/L BUN (9-20) mg/dL Creatinine (0.66-1.25) mg/dL Est GFR (CKD-EPI)AfAm (>60 ml/min/1.73 sqM) Est GFR (CKD-EPI)NonAf (>60 ml/min/1.73 sqM) Glucose (74-99) mg/dL Calcium (8.4-10.2) mg/dL Magnesium (1.6-2.3) mg/dL Total Bilirubin (0.2-1.3) mg/dL AST (17-59) U/L ALT (4-49) U/L Alkaline Phosphatase (38-126) U/L Troponin I <0.012 (0.000-0.034) ng/mL Total Protein (6.3-8.2) g/dL Albumin (3.5-5.0) g/dL Urine Color Yellow Urine Appearance Cloudy (Clear) Urine pH 6.0 (5.0-8.0) Ur Specific Fountain 1.010 (1.001-1.035) Urine Protein 1+ H (Negative) Urine Glucose (UA) Negative (Negative) Urine Ketones Negative (Negative) Urine Blood Small H (Negative) Urine Nitrite Negative (Negative) Urine Bilirubin Negative (Negative) Urine Urobilinogen <2.0 (<2.0) mg/dL Ur Leukocyte Esterase Large H (Negative) Urine RBC 9 H (0-5) /hpf Urine WBC 120 H (0-5) /hpf Urine WBC Clumps Moderate H (None) /hpf Ur Squamous Epith Cells <1 (0-4) /hpf Urine Bacteria Rare H (None) /hpf Hyaline Casts 4 H (0-2) /lpf Urine Mucus Rare H (None) /hpf Influenza Type A (PCR) Not Detected (Not Detectd) Influenza Type B (PCR) Not Detected (Not Detectd) RSV (PCR) Not Detected (Not Detectd) SARS-CoV-2 (PCR) Not Detected (Not Detectd) - EKG Data -: EKG Interpreted by Me EKG Comments: 12-lead Electrocardiogram Interpretation Note EKG was reviewed and interpreted by myself. 12-lead ECG performed at 1450 is interpreted by me as revealing normal sinus rhythm at a rate of 61 beats per minute. Left axis deviation. [place] interval is 160 ms, QRS duration is 106 ms, QTc is 423 ms.. There were no ST or T wave abnormalities to suggest myocardial ischemia or injury. R wave progression across the precordium was satisfactory. By my interpretation this EKG is non-diagnostic for acute ischemia. Disposition Clinical Impression: Syncope, Dehydration, UTI (urinary tract infection) Disposition: HOME SELF-CARE Condition: Good Prescriptions: Sulfamethoxazole/Trimethoprim [Bactrim Ds Tablet] 1 each PO BID 14 Days #1 tab Is patient prescribed a controlled substance at d/c from ED?: No Referrals: Carina Huitron MD [Primary Care Provider] - 1-2 days Time of Disposition: 16:29
[2022-11-19] MEDS ORDERED: SULFAMETHOX-TMP 800-160MG 1 EACH TAB PO STA (16:35)
== END 2022-11-19 17:20 | disposition home or self-care (01) ==
LOC: EC 14:03
DX: R55 Syncope and collapse (principal); E86.0 Dehydration; N39.0 Urinary tract infection, site not specified; Z88.0 Allergy status to penicillin; Z20.822 Contact with and (suspected) exposure to COVID-19
CPT/HCPCS: 36415; 70450; 71046; 80053; 81001; 83735; 84484; 85025; 85610; 85730; 87077; 87086; 87186; 87636; 93005; 96360; 99285

== ENCOUNTER 2023-02-13 07:18 | Day surgery (SDC) | payer MEDICARE, OTHER ==
--- NOTE | 2023-02-12 19:18 | P.GSHP ---
History of Present Illness H&P Date: 02/12/23 72 yo male who is in urine retention. He failed voiding trials He underwent a cmg showing bladder function. A cysto identified bladder stones and a trilobe obstructing \prostate. The patient comes for cystolithotripsy and a turp. the risks , complications and alternatives have been discussed. - Constitutional Constitutional: Denies chills, Denies fever - EENT Eyes: denies blurred vision, denies pain Ears, nose, mouth and throat: Denies headache, Denies sore throat - Cardiovascular Cardiovascular: Denies chest pain, Denies shortness of breath - Respiratory Respiratory: Denies cough, Denies 7 - Gastrointestinal Gastrointestinal: Denies abdominal pain, Denies diarrhea, Denies nausea, Denies vomiting - Genitourinary (Female) Genitourinary: Denies dysuria, Denies hematuria - Genitourinary (Male) Genitourinary: Denies dysuria, Denies hematuria - Musculoskeletal Musculoskeletal: Denies myalgias - Integumentary Integumentary: Denies pruritus, Denies rash - Neurological Neurological: Denies numbness, Denies weakness - Psychiatric Psychiatric: Denies anxiety, Denies depression - Endocrine Endocrine: Denies fatigue, Denies weight change Past Medical History Past Medical History: GERD/Reflux, Hypertension, Prostate Disorder, Syncope, Vascular Disorder Additional Past Medical History / Comment(s): Brain Aneurysm (2022) with alittle L sided weakness and balance issues, FALLS, BPH with corcoran History of Any Multi-Drug Resistant Organisms: None Reported Past Surgical History: No Surgical Hx Reported Past Anesthesia/Blood Transfusion Reactions: Unable to Obtain, Motion Sickness Additional Past Anesthesia/Blood Transfusion Reaction / Comment(s): Pt has never had anesthesia. Smoking Status: Former smoker, Vaper - Past Family History Mother Family Medical History: Dementia Father Family Medical History: Coronary Artery Disease (CAD) Additional Family Medical History / Comment(s): CABG at age 74 yrs. Parkinsons Medications and Allergies Home Medications Medication Instructions Recorded Confirmed Type Citalopram Hydrobromide 10 mg PO QAM 02/07/23 02/07/23 History [Citalopram HBr] Cyanocobalamin [Vitamin B-12] 500 mcg PO QAM 02/07/23 02/07/23 History Magnesium 400 mg PO QAM 02/07/23 02/07/23 History QUEtiapine FUMARATE 25 mg PO HS 02/07/23 02/07/23 History Tamsulosin [Flomax] 0.4 mg PO DAILY 02/07/23 02/07/23 History amLODIPine [Norvasc] 5 mg PO QAM 02/07/23 02/07/23 History carvediloL [Coreg] 6.25 mg PO BID 02/07/23 02/07/23 History Allergies Allergy/AdvReac Type Severity Reaction Status Date / Time Penicillins Allergy Unknown Unknown Verified 02/07/23 12:24 Surgical - Exam - General well developed, well nourished, no distress - Eyes normal ocular movement, no icteric - ENT no hearing loss, no congestion - Neck no masses, trachea midline - Respiratory normal respiratory effort, clear to auscultation - Abdomen Abdomen: soft, non tender, no guarding, no rigid, no rebound - Integumentary no rash, no abnormal pigmentation - Neurologic no disoriented, no combative - Psychiatric oriented to time, oriented to person, oriented to place, speech is normal, memory intact Assessment and Plan Assessment: Impression: urine retention with bladder stones and bph Plan: cystolithotripsy with bipolar turp
[~2023-02-13 07:18] MED LIST: DEXAMETHASONE SOD PHOSPHATE 4 MG/ML 1 ML VIAL IV ONE; GENTAMICIN 110 MG in SODIUM CHLORIDE 0.9% 100 ML IVPB PRN; HYDROmorphone 0.5 MG/0.5 ML SYRINGE IVP PRN; LACTATED RINGERS 1,000 ML IV SCH; ONDANSETRON 4 MG/2 ML VIAL IVP ONE
[2023-02-13] MEDS ORDERED: ePHEDrine 50 MG/ML 1 ML VIAL ONE (08:30)
[2023-02-13] MEDS ORDERED: PHENYLEPHRINE-0.9% NACL SYG 1,000 MCG/10 ML SYRINGE ONE (08:30)
[2023-02-13] MEDS ORDERED: MIDAZOLAM 2 MG/2 ML VIAL ONE (08:30)
[2023-02-13] MEDS ORDERED: PROPOFOL 10 MG/ML 20 ML VIAL IV ONE (08:30)
[2023-02-13] MEDS ORDERED: fentaNYL (PF) 50 MCG/ML 2 ML AMP ONE (08:30)
[2023-02-13] MEDS ORDERED: LIDOCAINE 1% INJ 10MG/ML (20 ML MDV) ONE (08:30)
[2023-02-13] MEDS ORDERED: LACTATED RINGERS 1,000 ML IV ONE (10:19)
--- NOTE | 2023-02-13 11:02 | P.OP ---
Date of Procedure: 02/13/23 Preoperative Diagnosis: Bladder stones, large greater than 5 cm. Urine retention secondary to BPH Postoperative Diagnosis: Same Procedure(s) Performed: Cystoscopy, cystolithotripsy with laser, large, bipolar TURP Anesthesia: MANISH Surgeon: Slava Granados Estimated Blood Loss (ml): 200 Pathology: other (Stone, prostate) Condition: stable Disposition: PACU Indications for Procedure: Patient is 72. He is in urine retention. He failed voiding. 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 He underwent a CMG to see if his bladder functions and he does. Cystoscopy identified an obstructing prostate with multiple large stones totaling greater than 5 cm he comes for cystoscopy lithotripsy and TURP Description of Procedure: Patient brought to the operating suite. Given a general anesthetic. Prepped and draped sterilely. Under direct vision the 21-Indonesian sheath Foroblique lenses introduced in urethra. Anterior urethra is normal. The prostatic urethra shows lateral lobe obstruction. The bladder wall shows multiple stones. With the thousand micron laser probe the stones are broken into smaller pieces and eventually flushed out or Ellik out of the bladder. Stones are very hard. The volume is greater than 5 cm. This takes almost 2 hours to do. I then after the bladder is emptied stones introduced the 25-Indonesian sheath and direct vision obturator into the bladder. With the Contreras resectoscope and bipolar super second loop I resect the prostate. The left lobe is resected from bladder neck to verumontanum the right lobe was resected in the redundant floor tissue is resected. The bladder is free of prostate with the Ellik evacuator. Bleeding is controlled electrocautery. I reinspected the prosthetic fossa there is no active bleeding. An 18-Indonesian coud-tip catheter is introduced the bladder with clear urine return. The patient is awakened and returned recovery room good condition. Blood loss is approximately 200 mL between both cases.
[2023-02-13 11:03] VITALS: TEMP 96.8
[2023-02-13 12:26] VITALS: BP 123/70; PULSE 90; RESP 18
== END 2023-02-13 12:58 | disposition home or self-care (01) ==
LOC: OR 07:18
PROVIDERS: ATTEND Urology
DX: N41.0 Acute prostatitis (principal); N21.0 Calculus in bladder; I10 Essential (primary) hypertension; I99.9 Unspecified disorder of circulatory system; F41.9 Anxiety disorder, unspecified; F31.9 Bipolar disorder, unspecified; K21.9 Gastro-esophageal reflux disease without esophagitis; Z87.891 Personal history of nicotine dependence; Z82.49 Family history of ischemic heart disease and other diseases of the circulatory system; Z79.83 Long term (current) use of bisphosphonates; Z79.52 Long term (current) use of systemic steroids; Z79.899 Other long term (current) drug therapy; Z88.0 Allergy status to penicillin; Z86.73 Personal history of transient ischemic attack (TIA), and cerebral infarction without residual deficits
CPT/HCPCS: 52318; 52601; 88305; 82365; J2250; J1100; J2405; J2001; J3010; J1580; J2704; J2371